=== PATIENT | male | born 1950 | race Caucasian/White ===

== ENCOUNTER → 2018-05-04 10:16 | Outpatient (CLI) | payer MEDICARE, OTHER, SELFPAY ==
--- NOTE | 2018-05-04 | DI.MRI.S_ITS ---
PROCEDURE: MR LUMBAR SPINE WO CON INDICATIONS: lumbar spine pain TECHNIQUE: Noncontrast sagittal T1 spin echo and T2 fast echo, sagittal STIR, axial T1 and T2 fast spin echo through the lumbar spine. In cases with scoliosis, additional coronal T2 fast spin echo may be performed. COMPARISON: [facility], CR, XR LUMBAR SPINE WITH OLBIQUES PLUS FLEXION EXTENSION, 04/23/2018, 9:54. [facility] Outside [facility], MR, MR LUMBAR SPINE WITHOUT CONTRAST, 04/01/2009, 13:26. [facility] Outside Film, CR, XR LUMBAR SPINE WITH OBLIQUES, 03/05/2009, 14:30. FINDINGS: Image quality: Excellent. Alignment and Curvature: There is grade 1 L5-S1 anterolisthesis secondary to facet hypertrophy. Bones: Transitional anatomy with 6 lumbar-type [id number] vertebral bodies and non-rudimentary S1-S2 disc noted. For purposes of this dictation, the 6 lumbar-type [id number] vertebral bodies will be designated L1-S1 with the last non-rudimentary disc of designated S1-S2. Marrow is of normal overall signal. No acute vertebral body compression fractures. Spinal Cord: Conus medullaris terminates at the L1 level. Visualized cord demonstrates normal signal and size. Paraspinous Soft Tissues: No paravertebral masses. L1-L2: Normal appearance. L2-L3: Normal appearance. L3-L4: Loss of disc signal. Minimal, diffuse disc bulge. No central stenosis. Mild bilateral neural foraminal narrowing. No neural impingement. L4-L5: Loss of disc signal. No central stenosis. No neural foraminal narrowing. No neural impingement. L5-S1: Loss of disc signal. Minimal, diffuse disc bulge. Severe bilateral facet hypertrophy. Moderate narrowing of the central canal secondary to disc and facet disease. Moderate to severe right and moderate left neural foraminal narrowing secondary to disc and facet disease with slight flattened deformity of the exiting right L5 nerve root. S1-S2: Disc has normal appearance. Mild bilateral facet hypertrophy. No central stenosis. Mild right neural foraminal narrowing secondary to facet hypertrophy. No neural impingement. IMPRESSION: 1. 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 6 lumbar type nonrib-bearing vertebral bodies designated L1-S1 with the last non-rudimentary disc designated S1-S2. 2. Grade I L5 and S1 degenerative spondylolisthesis. 2. Multilevel degenerative disc disease. 3. Multilevel facet arthropathy. 4. Moderate L5-S1 central canal narrowing. 5. Moderate to severe right and moderate left L5-S1 neural foraminal narrowing. Mild right S1-S2 neural foraminal narrowing. 6. Slight flattened deformity of the exiting right L5 nerve root secondary to neural foraminal narrowing. Please correlate with clinical data. Dictated by: Stefanie Grimaldo MD, PhD on 05/04/2018 at 16:10 Approved by: Stefanie Grimaldo MD, PhD on 05/04/2018 at 16:15
== END ==
PROVIDERS: PCP Family Medicine; Visit Provider Physical Medicine & Rehabilitation Pain Medicine
DX: M54.5 Low back pain (principal); M43.17 Spondylolisthesis, lumbosacral region; M51.37 Other intervertebral disc degeneration, lumbosacral region; M47.816 Spondylosis without myelopathy or radiculopathy, lumbar region
CPT/HCPCS: 72148

== ENCOUNTER → 2021-02-23 07:33 | Outpatient (CLI) | payer MEDICARE, OTHER, SELFPAY ==
--- NOTE | 2021-02-23 07:35 | DI.RAD.S_ITS ---
PROCEDURE: FL SMALL BOWEL FOLLOW THROUGH INDICATIONS: Diarrhea, unspecified COMPARISON: None. 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 No suspicious abdominal calcifications. Visualized solid organ contours appear normal. No suspicious bony abnormalities. Small bowel: There is relatively rapid transit time of barium through the small bowel, 35 minutes after ingestion.. Small bowel loops are of normal caliber throughout. Mucosal folds are smooth and of normal thickness. No strictures, intraluminal masses, or extrinsic mass effects are noted. The terminal ileum is identified, and is normal in morphology. IMPRESSION: Relatively rapid transit of oral contrast through the entire small bowel to the right colon, 35 minutes. No small bowel inflammation or dilatation is found.. Dictated by: Alex Colón M.D. on 02/23/2021 at 9:37 Approved by: Alex Colón M.D. on 02/23/2021 at 9:39
== END ==
PROVIDERS: PCP Family Medicine; Referring Provider Internal Medicine; Visit Provider Internal Medicine
DX: R19.7 Diarrhea, unspecified (principal)
CPT/HCPCS: 74250